=== PATIENT | female | born 1970 | race Caucasian/White ===

== ENCOUNTER → 2018-04-24 10:38 | Outpatient (CLI) | payer SELFPAY ==
--- NOTE | 2018-04-23 11:00 | EMB_PTH ---
PATIENT: KAREN MC LOC: [facility] U#:[id number] AGE/SX: 54/F ROOM: RE04/24/[address]: Dr. Bon Damon MD : 1970 BED: DIS: SPEC #: [id number] RECD: 04/24/18 10:36 STATUS: ZAC NISA #: [id number] JEREMY: 04/23/18 11:[address]: Bon Damon DEPT: SURGICAL PATHOLOGY RECD BY: Max Noel Tissues: Endometrium, NOS Procedures: Surgery Specimen Level IV HEADER OPERATION: Endometrial biopsy PRE-OP DIAGNOSIS: N93.9 TISSUE SUBMITTED: Endometrial biopsy MICROSCOPIC DIAGNOSIS Endometrium, biopsy: Strips of benign superficial endometrium and endocervix. See comment. AM:r[place] 04/25/18 COMMENT The specimen primarily consists of blood. Clinical correlation is suggested. There is focal stromal breakdown identified. MICROSCOPIC DESCRIPTION Slides are reviewed. GROSS DESCRIPTION Received in fixative is one container labeled with the patient's name and designated endometrial biopsy. The specimen consists of multiple irregular fragments of light to dark monique soft tissue that in aggregate measure 2.5 x 2 x 0.2 cm. The specimen is totally submitted in one cassette. / AM:r[place] 04/24/18 TC:5 [facility]: [id number]
== END ==
PROVIDERS: Referring Provider Obstetrics & Gynecology; Visit Provider Obstetrics & Gynecology
DX: N93.9 Abnormal uterine and vaginal bleeding, unspecified (principal)
CPT/HCPCS: 88305

== ENCOUNTER → 2019-01-22 14:50 | Outpatient (CLI) | payer SELFPAY ==
--- NOTE | 2019-01-22 14:59 | CT_ITS ---
STUDY: CT ABDOMEN AND PELVIS WITH AND WITHOUT CONTRAST REASON FOR EXAM: Female, 48 years old. Gross hematuria RADIATION DOSAGE (If Supplied By Facility): CTDIvol = ( 14.80 ) mGy, DLP = ( 1864.87 ) mGycm TECHNIQUE: Transaxial images were obtained from the dome of the diaphragm to the symphysis pubis without oral contrast. 100ML ISOVUE 370 was administered. Sagittal and coronal images were reconstructed. Individualized dose optimization techniques were used for this CT. COMPARISON: None. FINDINGS: The visualized lung bases are unremarkable. The visualized portions of the heart are within normal limits. There is minimal central pneumatobilia. There are surgical clips in the gallbladder fossa consistent with a prior cholecystectomy. Normal spleen. Normal pancreas. Normal bilateral adrenal glands. The upper poles of the kidneys are not included in the [id number] on the noncontrast series. Normal right kidney. Normal left kidney. Normal visualized stomach. Normal small intestine. Normal colon. There is non-visualization of the appendix. Normal abdominal aorta. Normal inferior vena cava. Normal retroperitoneum. Normal urinary bladder. There are bilateral tubal ligation clips. Uterus is slightly bulky in size and heterogeneous in density. There is a tiny amount of free fluid in the deep left pelvis. There is a small umbilical hernia containing fat. Normal osseous structures. CT/CT Abd/Pelvis W/WO Contrast IMPRESSION: 1. Status post cholecystectomy. Minimal central pneumatobilia. 2. The kidneys appear normal. 3. Bilateral tubal ligation clips. The uterus is slightly bulky in size and heterogeneous in density. 4. There is a tiny amount of free fluid in the deep left pelvis. 5. Tiny fat-containing umbilical hernia. Electronically Signed: Topher Galvez MD at 16:33 EST , Service support ,
== END ==
PROVIDERS: Referring Provider Urology; Visit Provider Urology
DX: R31.0 Gross hematuria (principal)
CPT/HCPCS: 74178; Q9967

== ENCOUNTER → 2019-07-21 12:17 | Outpatient (CLI) | payer SELFPAY ==
--- NOTE | 2019-07-21 | FLU_PTH ---
PATIENT: KAREN MC LOC: [facility] U#:[id number] AGE/SX: 54/F ROOM: RE07/21/[address]: Dr. Laura Barraza MD : 1970 BED: DIS: SPEC #: [id number] RECD: 07/21/19 15:00 STATUS: ZAC NISA #: [id number] JEREMY: 07/21/19 00:[address]: Laura Barraza DEPT: CYTOLOGY RECD BY: Nery Barcenas ENTERED: 07/22/19 08:57 SP TYPE: Fluid OTHR DR: No Primary Care Phys Tissues: Urine Procedures: Special Stain Group II Cytospin Fluid HEADER OPERATION: Not noted PRE-OP DIAGNOSIS: UTI TISSUE SUBMITTED: Urine for cytology DIAGNOSIS CYTOLOGY Urine for cytology (cytospin): Negative for malignant cells. Marked acute inflammation. Numerous organisms consistent with bacteria noted. See comment. SJ:raleigh 6/17/20 COMMENT Clinical correlation and appropriate follow up are necessary. CYTOLOGY STUDY Slides are reviewed. CYTOLOGY GROSS Received is 110 ml of pale yellow fluid labeled with the patient's name and and designated per the requisition as urine. Submitted for cytology preparation. / r[place] 07/22/19 TC:2 CPT: 57373
[2019-07-21 12:24] LABS: Cytology, Body Fluid / CSF SEE PATHOLOGY REPORT
== END ==
PROVIDERS: Referring Provider Urology; Visit Provider Urology
DX: N39.0 Urinary tract infection, site not specified (principal); R30.0 Dysuria
CPT/HCPCS: 87086; 87088; 87186; 88108; 88305; 88313

== ENCOUNTER → 2019-07-30 14:27 | Outpatient (CLI) | payer SELFPAY ==
[2019-07-30 17:47] LABS: Color, Urine Yellow (Yellow); Glucose, Dipstick Normal (Normal); Ketone-Dipstick 5 mg/dl (Negative); Leukocyte Esterase-Dipstick 100 /ul (Negative); Nitrite-Dipstick Positive (Negative); Occult Blood-Urine 10 /ul (Negative); Protein-Dipstick Negative (Negative); Urine Clarity Cloudy (Clear); Urine Urobilinogen 4 mg/dl (Normal)
[2019-07-30 17:50] LABS: Urine Bilirubin Dipstick 3 mg/dL (Negative)
== END ==
PROVIDERS: Referring Provider Urology; Visit Provider Urology
DX: N39.0 Urinary tract infection, site not specified (principal)
CPT/HCPCS: 81002; 87086; 87088